=== PATIENT | male | born 1970 | race Caucasian/White ===

== ENCOUNTER 2021-10-15 17:23 | Emergency (ER) | payer OTHER ==
[~2021-10-15] VITALS: Ht 175.3 cm; Wt 105.4 kg
[2021-10-15] MEDS ORDERED: FAMOTIDINE 20 MG/2 ML VIAL IVP ONE (17:45)
[2021-10-15 18:07] LABS: BASO % 0 % (0-3); EOS # 0.2 x10^3/uL (0.0-0.7); EOS % 2 % (0-3); HEMATOCRIT 42.8 % (39.0-53.0); LYMPH # 1.5 x10^3/uL (1.0-4.8); LYMPH % 16 % (24-48); MEAN CORPUSCULAR HEMOGLOBIN 27 pg (25-35); MEAN CORPUSCULAR HGB CONC 33 g/dL (31-37); MEAN CORPUSCULAR VOLUME 82 fL (79-100); MONO # 0.6 x10^3/uL (0.0-1.1); MONO % 7 % (0-9); NEUT # 6.9 x10^3uL (1.8-7.7); NEUT % 75 % (31-73); PLATELET COUNT 242 x10^3/uL (140-400); RED BLOOD COUNT 5.24 x10^6/uL (4.30-5.70); RED CELL DISTRIBUTION WIDTH 15.3 % (11.5-14.5); WHITE BLOOD COUNT 9.2 x10^3/uL (4.0-11.0)
[2021-10-15 18:17] LABS: CALCIUM 8.4 mg/dL (8.5-10.1); CREATININE 1.1 mg/dL (0.7-1.3); GFR 70.3; POTASSIUM 3.9 mmol/L (3.5-5.1)
[2021-10-15] MEDS ORDERED: diphenhydrAMINE 50 MG/ML VIAL IVP ONE (20:00)
--- NOTE | 2021-10-15 20:52 | PHYS DOC ---
Past History Past Surgical History: Other Additional Past Surgical Histo: AORTIC VALVE REPLACEMENT, MECHANICAL VALVE (ANDREIA CROSS APRN) Alcohol Use: None (ANDREIA CROSS APRN) General Adult EDM: Chief Complaint: ALLERGIC REACTION HPI: HPI: Patient is a 51-year-old male presents with allergic reaction. Patient is reporting some swelling under his eyes along with hives. Denies any new exposures. Patient states he felt like his voice was changing and had trouble swallowing. Denied shortness of breath or chest pain. Denies taking anything prior to arrival for symptoms. (ANDREIA CROSS APRN) Review of Systems: Review of Systems: ROS At least 10 ROS systems have been reviewed and are negative except as documented in the HPI. General: Negative except as outlined in HPI above. Skin: Negative except as outlined in HPI above. HEENT: Negative except as outlined in HPI above. Neck: Negative except as outlined in HPI above. Respiratory: Negative except as outlined in HPI above.. Cardiovascular: Negative except as outlined in HPI above. Abdomen: Negative except as outlined in HPI above. : Negative except as outlined in HPI above. Back/MSK: Negative except as outlined in HPI above. Neuro: Negative except as outlined in HPI above. Psych: Negative except as outlined in HPI above. (ANDREIA CROSS APRN) Current Medications: Current Meds: Current Medications Medications (Trade) Dose Ordered Sig/Giorgio Start Time Stop Time Status Last Admin Dose Admin Albuterol Sulfate (Ventolin Hfa Inhaler) 1 puff 1X ONCE 10/15/21 21:15 10/15/21 21:16 Diphenhydramine HCl (Benadryl) 25 mg 1X ONCE 10/15/21 20:00 10/15/21 20:01 DC Famotidine (Pepcid Vial) 20 mg 1X ONCE 10/15/21 17:45 10/15/21 18:47 DC 10/15/21 17:45 20 MG Methylprednisolone Acetate (DEPO-Medrol IM) 40 mg 1X ONCE 10/15/21 21:15 10/15/21 21:16 (ANDREIA CROSS APRN) Allergies: Allergies: Allergies Coded Allergies Type Severity Reaction Last Updated Verified No Known Drug Allergies 10/15/21 No (ANDREIA CROSS APRN) Physical Exam: PE: Constitutional: Well developed, well nourished, no acute distress, non-toxic appearance. [] HENT: Mild swelling under bilateral eyes, bilateral external ears normal, oropharynx moist, no oral exudates, nose normal. [] Eyes: PERRLA, EOMI, conjunctiva normal, no discharge. [] Neck: Normal range of motion, no tenderness, supple, no stridor. [] Cardiovascular:Heart rate regular rhythm, no murmur [] Lungs & Thorax: Bilateral breath sounds clear to auscultation [] Abdomen: Bowel sounds normal, soft, no tenderness, no masses, no pulsatile masses. [] Skin: Warm, dry, no erythema, no rash. [] Back: No tenderness, no CVA tenderness. [] Extremities: No tenderness, no cyanosis, no clubbing, ROM intact, no edema. [] Neurologic: Alert and oriented X 3, normal motor function, normal sensory function, no focal deficits noted. [] Psychologic: Affect normal, judgement normal, mood normal. [] (ANDREIA CROSS APRN) Current Patient Data: Labs: Laboratory Tests Test 10/15/21 17:50 White Blood Count 9.2 x10^3/uL (4.0-11.0) Red Blood Count 5.24 x10^6/uL (4.30-5.70) Hemoglobin 14.0 g/dL (13.0-17.5) Hematocrit 42.8 % (39.0-53.0) Mean Corpuscular Volume 82 fL (79-100) Mean Corpuscular Hemoglobin 27 pg (25-35) Mean Corpuscular Hemoglobin Concent 33 g/dL (31-37) Red Cell Distribution Width 15.3 % (11.5-14.5) H Platelet Count 242 x10^3/uL (140-400) Neutrophils (%) (Auto) 75 % (31-73) H Lymphocytes (%) (Auto) 16 % (24-48) L Monocytes (%) (Auto) 7 % (0-9) Eosinophils (%) (Auto) 2 % (0-3) Basophils (%) (Auto) 0 % (0-3) Neutrophils # (Auto) 6.9 x10^3uL (1.8-7.7) Lymphocytes # (Auto) 1.5 x10^3/uL (1.0-4.8) Monocytes # (Auto) 0.6 x10^3/uL (0.0-1.1) Eosinophils # (Auto) 0.2 x10^3/uL (0.0-0.7) Basophils # (Auto) 0.0 x10^3/uL (0.0-0.2) Sodium Level 132 mmol/L (136-145) L Potassium Level 3.9 mmol/L (3.5-5.1) Chloride Level 97 mmol/L (98-107) L Carbon Dioxide Level 25 mmol/L (21-32) Anion Gap 10 (6-14) Blood Urea Nitrogen 13 mg/dL (8-26) Creatinine 1.1 mg/dL (0.7-1.3) Estimated GFR (Cockcroft-Gault) 70.3 Glucose Level 131 mg/dL (70-99) H Calcium Level 8.4 mg/dL (8.5-10.1) L Vital Signs: Vital Signs Date Time Temp Pulse Resp B/P (MAP) Pulse Ox O2 Delivery O2 Flow Rate FiO2 10/15/21 17:30 98.4 107 22 165/93 (117) 98 Room Air (ANDREIA CROSS APRN) EKG: EKG: [] (ANDREIA CROSS APRN) Radiology/Procedures: Radiology/Procedures: [] (ANDREIA CROSS APRN) Heart Score: C/O Chest Pain: No Risk Factors: Risk Factors: DM, Current or recent (<one month) smoker, HTN, HLP, family history of CAD, obesity. Risk Scores: Score 0 - 3: 2.5% MACE over next 6 weeks - Discharge Home Score 4 - 6: 20.3% MACE over next 6 weeks - Admit for Clinical Observation Score 7 - 10: 72.7% MACE over next 6 weeks - Early Invasive Strategies (ANDREIA CROSS APRN) Course & Med Decision Making: Course & Med Decision Making Pertinent Labs and Imaging studies reviewed. (See chart for details) [] 51-year-old male presents after allergic reaction. Patient states he started having hives earlier today and then his face started swelling under his eyes. Patient was concerned because his had some voice changes as well. Patient had trouble swallowing but denied shortness of breath or chest pain. Patient is maintaining secretions on his own. Physical exam was unremarkable. Work-up in ER consist of CBC, CMP, Pepcid, Benadryl, Depo-Medrol. Patient symptoms have improved. Sending patient home with albuterol inhaler as well. Discussed return precautions in length. Patient verbalizes understanding of discharge instructions. (ANDREIA CROSS APRN) Michaelon Disclaimer: Jeannette Disclaimer: This electronic medical record was generated, in whole or in part, using a voice recognition dictation system. (ANDREIA CROSS APRN) Departure Departure: Impression: Primary Impression: Allergic reaction Disposition: HOME / SELF CARE / HOMELESS Condition: STABLE Referrals: DAVE ALMANZA MD (PCP) Patient Instructions: Lex Additional Instructions: You were seen in the emergency room for allergic reaction. You were treated with steroids and Benadryl to help with symptoms.You can take Benadryl at home to help with symptoms. Make sure you return to the ER if you have trouble breathing, maintaining secretions, chest pain. EMERGENCY DEPARTMENT GENERAL DISCHARGE INSTRUCTIONS Thank you for coming to [facility] (ED) today and trusting us with you care. We trust that you had a positivie experience in our Emergency Department. If you wish to speak to the department management, you may call the director at [phone]. YOUR FOLLOW UP INSTRUCTIONS ARE FOLLOWS: 1. Do you have a private Doctor? If you do not have a private doctor, please ask for a resource list of physicians or clinics that may be able to assist you with follow up care. 2. The Emergency Physician has interpreted your x-rays. The X-Ray specialist will also review them. If there is a change in the findings, you will be notified in 48 hours when at all possible. 3. A lab test or culture has been done, your results will be reviewed and you will be notified if you need a change in treatment. ADDITIONAL INSTRUCTIONS AND INFORMATION: 1. Your care today has been supervised by a physician who is specially trained in emergency care. Many problems require more than one evaluation for a complete diagnosis and treatment. We recommend that you schedule your follow up appointment as recommended to ensure complete treatment of you illness or injury. If you are unable to obtain follow up care and continue to have a problem, or if your condition worsens, we recommend that you return to the ED. 2. We are not able to safely determine your condition over the phone nor are we able to give sound medical advice over the phone. For these safety reasons, if you call for medical advice we will ask you to come to the ED for further evaluation. 3. If you have any questions regarding these discharge instructions please call the ED at [phone]. SAFETY INFORMATION: In the interest of safety, wellness, and injury prevention; we encourage you to wear your sealbelt, if you smoke; quite smoking, and we encourage family to use a protective helmet for bicycling and other sporting events that present an increased risk for head injury. IF YOUR SYMPTOMS WORSEN OR NEW SYMPTOMS DEVELOP, OR YOU HAVE CONCERNS ABOUT YOUR CONDITION; OR IF YOUR CONDITION WORSENS WHILE YOU ARE WAITING FOR YOUR FOLLOW UP APPOINTMENT; EITHER CONTACT YOUR PRIMARY CARE DOCTOR, THE PHYSICIAN WHOSE NAME AND NUMBER YOU WERE GIVEN, OR RETURN TO THE ED IMMEDIATELY. Attending Signature Attending Signature I have participated in the care of this patient and I have reviewed and agree with all pertinent clinical information above including history, exam, and recommendations. (SEBASTIAN CASTAÑEDA MD) Attending Signature Attending Signature I have participated in the care of this patient and I have reviewed and agree with all pertinent clinical information above including history, exam, and recommendations. (SEBASTIAN CASTAÑEDA MD) Attending Signature Attending Signature I have participated in the care of this patient and I have reviewed and agree with all pertinent clinical information above including history, exam, and recommendations. (SEBASTIAN CASTAÑEDA MD) Dragon Disclaimer This chart was dictated in whole or in part using Voice Recognition software in a busy, high-work load, and often noisy Emergency Department environment. It may contain unintended and wholly unrecognized errors or omissions. (SEBASTIAN CASTAÑEDA MD) Dragon Disclaimer This chart was dictated in whole or in part using Voice Recognition software in a busy, high-work load, and often noisy Emergency Department environment. It may contain unintended and wholly unrecognized errors or omissions. (SEBASTIAN CASTAÑEDA MD) ANDREIA CROSS APRN October 15, 2021 20:52 SEBASTIAN CASTAÑEDA MD October 19, 2021 17:38
[2021-10-15 21:06] VITALS: BP 162/93
[2021-10-15] MEDS ORDERED: ALBUTEROL SULFATE 8GM INHALER. INH ONE (21:15)
[2021-10-15] MEDS ORDERED: methylPREDNISolone ACETATE 40 MG/ML VIAL. IM ONE (21:15)
== END 2021-10-15 21:15 | disposition home or self-care (01) ==
LOC: ER 17:23
DX: T78.40XA Allergy, unspecified, initial encounter (principal); X58.XXXA Exposure to other specified factors, initial encounter
CPT/HCPCS: 36415; 80048; 85025; 94640; 96372; 96374; 96375; 99283; J1030; J1200; J3490; 94664